=== PATIENT | female | born 1975 | race Caucasian/White ===

== ENCOUNTER 2017-07-12 21:11 | Emergency (ER) | payer OTHER, SELFPAY ==
[~2017-07-12] VITALS: Ht 172.7 cm; Wt 96.9 kg
[2017-07-12 21:30] VITALS: BP 138/99
== END 2017-07-12 22:32 | disposition left against medical advice (07) ==
LOC: ED 21:17
DX: Z53.21 Procedure and treatment not carried out due to patient leaving prior to being seen by health care provider (principal)